=== PATIENT | female | born 1990 | race Caucasian/White ===

== ENCOUNTER → 2017-01-02 | Outpatient (CLI) | payer BC, OTHER ==
[~2017-01-02] MED LIST: BCPILLS PO; CIPR1TAB11 PO
== END | disposition home or self-care (01) ==
LOC: C.LABSPEC 18:03
PROVIDERS: ATTEND Internal Medicine
DX: N39.0 Urinary tract infection, site not specified (principal)

== ENCOUNTER → 2017-04-20 | Outpatient (CLI) | payer BC, OTHER ==
[2017-04-20 17:25] LABS: ALT/SGPT 23 U/L (12-78); AST/SGOT 42 U/L (15-37); BLOOD UREA NITROGEN 14 mg/dl (7-18); BUN/CREATININE RATIO 12.8 (10-20); CALCIUM 9.7 mg/dl (8.5-10.1); CARBON DIOXIDE 25 mmol/L (21-32); CHLORIDE 107 mmol/L (98-107); GLUCOSE 76 mg/dl (70-99); POTASSIUM 3.8 mmol/L (3.5-5.1); SODIUM 137 mmol/L (136-145)
[2017-04-20 17:35] LABS: ALB/GLOB RATIO 1.2 (0.9-2); ALKALINE PHOSPHATASE 38 U/L (45-117)
[2017-04-20 17:44] LABS: LYME DISEASE AB IGG NEG (NEG); LYME DISEASE AB IGM NEG (NEG)
[2017-04-20 17:58] LABS: BASO % 0.3 %; BASO ABS # 0.02 K/uL (0-0.2); COMPLETE YES; EOS % 0.4 %; HEMATOCRIT 44.2 % (37-47); IG% 0.1 %; LYMPH % 27.9 %; LYMPH ABS # 1.87 K/uL (1.2-3.4); MEAN CELL VOLUME 90.2 fL (80-100); MEAN CORPUSCULAR HEMOGLOBIN 30.8 pg (25-34); MEAN CORPUSCULAR HGB CONC 34.2 g/dl (32-36); MEAN PLATELET VOLUME 10.7 fL (7.4-10.4); MONO % 6.4 %; NEUT % 64.9 %; PLATELET COUNT 243 K/uL (130-400)
== END | disposition home or self-care (01) ==
LOC: C.LABBFT 16:35
PROVIDERS: ATTEND Internal Medicine
DX: Z00.00 Encounter for general adult medical examination without abnormal findings (principal); R06.09 Other forms of dyspnea; R07.9 Chest pain, unspecified; R53.83 Other fatigue

== ENCOUNTER → 2017-05-23 | Outpatient (CLI) | payer BC, OTHER ==
[2017-05-25 00:09] LABS: CHLAMYDIA TRACH RNA*** NOT DETECTED (NOT DETECTED); GC (NEIS GONORRHOEAE)RNA** NOT DETECTED (NOT DETECTED)
== END | disposition home or self-care (01) ==
LOC: C.LABSPEC 11:25
PROVIDERS: ATTEND Obstetrics & Gynecology
DX: Z01.419 Encounter for gynecological examination (general) (routine) without abnormal findings (principal)

== ENCOUNTER → 2017-05-23 | Outpatient (CLI) | payer BC, OTHER | END | disposition home or self-care (01) | LOC: C.PAPS 14:12 | PROVIDERS: ATTEND Obstetrics & Gynecology | DX: Z01.419 Encounter for gynecological examination (general) (routine) without abnormal findings (principal) ==

== ENCOUNTER → 2017-06-11 | Outpatient (CLI) | payer BC, OTHER ==
[2017-06-11 14:14] LABS: PREG INTERNAL NEGATIVE QC NEG CLEAR BACKGROUND; PREG INTERNAL POSITIVE QC POS CONTROL LINE
== END | disposition home or self-care (01) ==
LOC: C.LAB 13:36
PROVIDERS: ATTEND Obstetrics & Gynecology
DX: Z30.9 Encounter for contraceptive management, unspecified (principal)

== ENCOUNTER 2020-12-21 08:56 | Inpatient (IN) ==
[2020-12-21] MEDS ORDERED: OXYTOCIN 30 UNITS/500 ML BAG IV PRN ×2 (08:57)
--- NOTE | 2020-12-21 09:17 | Labor Progress Brief Note ---
Date of Service December 21, 2020 Subjective Patient seen in L&D3 where she is being admitted for planned IOL due to postdates. No OB c/o at this time. Good FM, no ctx, LOF or VB. Assessment & Plan (1) Encounter for induction of labor: Pitocin, AROM when ready, epidural on request. All questions answered of patient and FOB. Admission and Anticipated Discharge Date Admission Date: December 21, 2020 Physical Exam Physical Exam: /-2/soft/ant FHT Cat 1 [place] quiet Results & Data ([facility]) Vital Signs (Past 12 Hours) Vital Signs Pulse BP 12/21/20 08:59 84 129/79 Coding Level of Care Code None Diagnoses Encounter for induction of labor Z34.90
[2020-12-21 09:34] LABS: Hematocrit (blood only) 36.9 % (37-47); Hemoglobin 12.8 g/dL (12.0-16.0); Mean Corpuscular Hemoglobin 32.2 pg (25-34); Mean Corpuscular Hgb Conc 34.7 g/dL (32-36); Mean Corpuscular Volume 92.7 fL (80-100); Mean Platelet Volume 9.9 fL (7.4-10.4); Platelet Count 166 K/uL (130-400); RDW Coefficient of Variation 13.2 % (11.5-14.5); RDW Standard Deviation 45.2 fL (36.4-46.3); Red Blood Count 3.98 M/uL (4.2-5.4)
[2020-12-21] MEDS: LACTATED RINGER'S 1,000 ML IV PRN ×2 (10:40→12:21)
[2020-12-21] MEDS ORDERED: ePHEDrine sulfate 50 MG/ML AMP ONE (11:37)
--- NOTE | 2020-12-21 11:37 | Labor Progress Brief Note ---
Date of Service December 21, 2020 Subjective Feeling cramps, tolerating well Assessment & Plan (1) Encounter for induction of labor: Admission and Anticipated Discharge Date Admission Date: December 21, 2020 Physical Exam Physical Exam: / AROM light mec FHT Cat 1 [place] Q2 Results & Data ([facility]) Vital Signs (Past 12 Hours) Vital Signs Temp Pulse Resp BP 12/21/20 11:29 98.6 F 88 20 120/74 12/21/20 10:37 72 118/62 12/21/20 09:04 98.2 F 20 12/21/20 08:59 84 129/79 Coding Level of Care Code None Diagnoses Encounter for induction of labor Z34.90
[2020-12-21] MEDS ORDERED: BUPIVACAINE 0.25% 30 ML VIAL ONE (11:38)
[2020-12-21] MEDS ORDERED: fentaNYL 2MCG/ML ROPIVACAINE 1.25MG/ML 100 ML BAG EPI ONE (11:38)
[2020-12-21] MEDS ORDERED: fentaNYL citrate 100 MCG/2 ML VIAL ONE (11:38)
[2020-12-21] MEDS ORDERED: SODIUM CHLORIDE 0.9% INJ 10 ML VIAL ONE (11:38)
--- NOTE | 2020-12-21 11:59 | Anesthesiology Consultation ---
Date of Service December 21, 2020 Assessment & Plan Chart Review Chart Review: Acceptable Risk for Surgery, Patient NOT seen in Pre Admission Testing and Acceptable Risk for Labor Epidural Consults Requested none ASA ASA2 Proposed Anesthesia Anesthesia Type: Labor Epidural and CSE History Height/Weight Height: 5 ft 9 in Weight: 78.29 kg Allergies Allergy/AdvReac Type Severity Reaction Status Date / Time No Known Allergies Allergy Verified 12/21/20 09:31 Medications Home Medications Medication Instructions Recorded Confirmed Last Taken prenat.vits,paolo,rip-flrf-zbstx 1 tab PO DAILY 05/04/20 12/21/20 12/20/20 20:00 Active Medications Generic Name Dose Route Start Last Admin Trade Name Freq PRN Reason Stop Dose Admin Oxytocin 30 units in 500 mls @ 3 mls/hr 12/21/20 08:57 12/21/20 11:10 Pitocin IV 12/23/20 08:56 0.18 units/hr .Q24H PRN 3 mls/hr Labor Induction/Augmentation Titration Protocol 0.18 UNITS/HR Lactated Ringer's 1,000 mls @ 125 mls/hr 12/21/20 08:57 12/21/20 11:30 Lr IV 12/23/20 08:56 999 mls/hr .Q8H PRN Infusion L&D Protocol Protocol Past Medical History Medical History Classic migraine with aura First trimester Hx: UTI (urinary tract infection) Exercise / Class Metabolic Activity II 4-5 Yardwork/Stairs/Walk up hill Past Family History Family History Uncle Stroke paternal Myocardial infarction Grandfather (Paternal) Lung cancer Aunt Melanoma maternal Mother Melanoma Denies family history of Ovarian cancer Breast cancer Colorectal cancer Past Surgical History Surgical History History of knee surgery History of wisdom tooth extraction Past Anesthesia History No Hx of Anesthesia Complications and No Family Hx of Anesthesia Complications History of PONV No Hx of PONV and No Hx of Motion Sickness Social History Smoking Status: Never smoker Hx Alcohol Use: No Hx Substance Use: No Physical Exam Vital Signs Last Vital Signs Temp 37.0 C 12/21/20 11:29 Pulse 88 04/06/21 11:29 Resp 20 12/21/20 11:29 BP 120/74 12/21/20 11:29 Testing Laboratory Results 12/21/20 09:21
[2020-12-21] MEDS ORDERED: ePHEDrine sulfate 50 MG/ML AMP IV PRN (12:34)
[2020-12-21] MEDS ORDERED: PROMETHAZINE HCL 25 MG in SODIUM CHLORIDE 0.9% 50 ML IV PRN (12:34)
[2020-12-21] MEDS ORDERED: diphenhydrAMINE 50 MG/ML VIAL IV PRN (12:34)
[2020-12-21] MEDS ORDERED: fentaNYL 2MCG/ML ROPIVACAINE 1.25MG/ML 100 ML BAG EPI PRN (12:34)
[2020-12-21] MEDS ORDERED: NALOXONE HCL 1 MG in SODIUM CHLORIDE 0.9% 1000ML 1,000 ML IV PRN (12:34)
[2020-12-21] MEDS ORDERED: NALOXONE HCL 0.4 MG/1 ML VIAL/CARP IV PRN (12:34)
[2020-12-21] MEDS ORDERED: ONDANSETRON INJ 2 MG/ML 2 ML VIAL IV PRN (12:34)
--- NOTE | 2020-12-21 16:15 | Anesthesia Procedure Note ---
Date of Service December 21, 2020 Anesthesia Post Epidural Note Vital Signs Vital Signs: Temp Pulse Resp BP Pulse Ox 37.1 C 87 20 120/79 100 12/21/20 13:30 12/21/20 15:57 12/21/20 14:46 12/21/20 15:57 12/21/20 15:49 Notes Mental Status: alert / awake / arousable Nausea / Vomiting: adequately controlled Pain: adequately controlled Airway Patency, RR, SpO2: stable & adequate BP & HR: stable & adequate Hydration State: stable & adequate Neuraxial Anesthesia: was administered and sensory block is resolving Anesthetic Complications: no major complications apparent Epidural: Removed without complications and With tip intact
--- NOTE | 2020-12-21 16:21 | Delivery Summary ---
Vaginal Delivery Summary Date of Service December 21, 2020 Vaginal Delivery Summary DIAGNOSES: 1. [place] intrauterine at 40w3d gestation. 2. Induction of Labor. 3. Group B Streptococcus Neg. PROCEDURE: Spontaneous vaginal delivery and repair of second degree laceration. SURGEON: Marie Shaw MD. GLOBE MOUNTER: None. ESTIMATED BLOOD LOSS: 300 mL. COMPLICATIONS: None. PLACENTA: Spontaneous and intact with a 3-vessel cord. DISPOSITION: Stable to labor and delivery. DESCRIPTION: The patient pushed well and brought the head to in OA position. The 's head was allowed to deliver with contraction force and no further active pushing, with the perineum protected during this time. The shoulders delivered easily with a maternal pushing effort. There was no nuchal cord. The body delivered without any difficulty, and the was placed on the maternal abdomen. It was vigorous and moving all extremities, and making respiratory efforts. The cord was doubly clamped by the MD and then cut by the FOB. The placenta delivered spontaneously and was noted to be intact and with a 3VC. The cervix, vagina and perineum were examined and were found to have a second degree perineal laceration which was repaired in the usual manner using vicryl suture, including a crown stitch to rebuild the perineal body. The bladder was catheterized with a red rubber straight catheter x1 immediately thereafter. The fundus was firm and lochia minimal immediately after delivery. [facility] Vaginal Delivery Charge Vaginal Delivery Codes: 39770 global code for the antepartum, delivery, and post-
[2020-12-21] MEDS ORDERED: SUPERCREAM 0.870% 15 GM JAR EXT PRN (16:42)
[2020-12-21] MEDS ORDERED: BENZOCAINE 20% AER SPR 82.5 GM CAN EXT PRN (16:42)
[2020-12-21] MEDS ORDERED: DIPHTHERIA/TETANUS/PERTUSSIS 0.5 ML SYR/VIAL IM ONE (16:42)
[2020-12-21] MEDS ORDERED: HYDROCORTISONE ACETATE 25 MG SUPP PR PRN (16:42)
[2020-12-21] MEDS ORDERED: oxyCODONE/ACETAMINOPHEN 5mg/325mg TAB PO PRN (16:42)
[2020-12-21] MEDS ORDERED: ACETAMINOPHEN 325 MG TAB PO PRN (16:42)
[2020-12-21] MEDS: IBUPROFEN 600 MG TAB PO PRN (18:06)
[2020-12-21] MEDS: DOCUSATE SODIUM 100 MG CAP PO SCH (20:25)
[2020-12-22] MEDS: IBUPROFEN 600 MG TAB PO PRN ×3 (01:30→17:30)
--- NOTE | 2020-12-22 05:04 | Obstetrical Progress Note ---
Date of Service <Hany Doan MD - Last Filed: 12/22/20 06:21> December 22, 2020 Assessment & Plan <Hany Doan MD - Last Filed: 12/22/20 06:21> (1) (spontaneous vaginal delivery): Tammy is a 30 y/o female who is now PPD #1 following IOL (for post- dates) with subsequent at 40-3/7 weeks. - Feels well today. Eating well, voiding well, ambulating well. - Pain well controlled with ibuprofen 600mg Q4H PRN. - Rhogam today - Routine PPD care -- promote OOB, ambulation as tolerated - After discharge will have [address] Shaw Subjective <Hany Doan MD - Last Filed: 12/22/20 06:21> Tammy is a 30 y/o female who is now PPD #1 following IOL (for post-dates) with subsequent at 40-3/7 weeks. Reports feeling well overall this morning. Endorses mild abdominal cramping with pain well managed on analgesics. Voiding without difficulty. Tolerating meals well and able to ambulate some. Some persistent lochia with some improvement this morning. Breast feeding without difficulty. Review of Systems Denies fever, chills, sweats Denies shortness of breath, difficulty breathing, chest pain, palpitations, chest pressure. Denies breast pain. Denies dysuria. Denies headache or changes in vision. Physical Exam <Hany Doan MD - Last Filed: 12/22/20 06:21> General: Alert, oriented. No acute distress. Cardiac: Regular rate and rhythm, no murmurs/rubs/gallops. Respiratory: Clear to auscultation bilaterally a/p, no wheezes/rales/rhonchi. No increased work of breathing. Symmetrical chest rise. No respiratory distress. Abdomen: Soft, nontender, nondistended. Bowel sounds present. Uterus: Uterine fundus firm, palpable 1-2 cm below umbilicus. Lower Extremities: No lower extremity edema or swelling. No deep calf pain. Joseph's negative bilaterally. Results & Data ([facility]) <Hany Doan MD - Last Filed: 12/22/20 06:21> Vital Signs (Past 12 Hours) Vital Signs Temp Pulse Pulse Resp BP BP Pulse Ox 12/22/20 04:00 37.0 C 70 18 119/70 12/22/20 00:00 36.5 C 75 18 114/70 12/21/20 18:45 36.8 C 94 H 18 127/79 99 12/21/20 18:33 36.8 C 20 12/21/20 18:12 96 H 125/65 12/21/20 17:57 77 116/62 12/21/20 17:45 20 12/21/20 17:42 90 128/73 12/21/20 17:28 101 H 124/85 12/21/20 17:15 20 12/21/20 17:12 88 126/72 <Marie Shaw MD - Last Filed: 12/22/20 08:01> Co-Signing Physician Notes Resident Physician Supervision Note: I interviewed and examined the patient. Discussed with Dr. Doan and agree with findings and plan as documented in the note. Any exceptions or clarifications are listed here: [ ] Documented By: Marie Shaw MD, FACOG Resident Activity Tracking <Hany Doan MD - Last Filed: 12/22/20 06:21> Resident Involvement: Resident Care Provided Care Provided: Adult Hospital Medicine and OB Delivery
[2020-12-22 06:42] LABS: Hematocrit (blood only) 36.5 % (37-47); Hemoglobin 12.5 g/dL (12.0-16.0); Mean Corpuscular Hgb Conc 34.2 g/dL (32-36); Mean Corpuscular Volume 93.4 fL (80-100); Mean Platelet Volume 9.7 fL (7.4-10.4); Platelet Count 146 K/uL (130-400); RDW Coefficient of Variation 13.5 % (11.5-14.5); RDW Standard Deviation 45.8 fL (36.4-46.3); Red Blood Count 3.91 M/uL (4.2-5.4); White Blood Count 12.89 K/uL (4.8-10.8)
[2020-12-22] MEDS: DOCUSATE SODIUM 100 MG CAP PO SCH ×2 (08:45→20:42)
[2020-12-22] MEDS: PRENATAL VITAMIN 1 TAB PO SCH (08:45)
--- NOTE | 2020-12-23 06:15 | Obstetrical Progress Note ---
Date of Service <Hany Doan MD - Last Filed: 12/23/20 07:14> December 23, 2020 Assessment & Plan <Hany Doan MD - Last Filed: 12/23/20 07:14> (1) (spontaneous vaginal delivery): Tammy is a 30 y/o female who is now PPD #2 following IOL (for post- dates) with subsequent at 40-3/7 weeks. - Feels well today. Eating well, voiding well, ambulating well. - Pain well controlled with ibuprofen 600mg Q4H PRN. - Routine PPD care -- promote OOB, ambulation as tolerated - Anticipate d/c today - After discharge will have [address] Shaw Subjective <Hany Doan MD - Last Filed: 12/23/20 07:14> Tammy is a 30 y/o female who is now PPD #2 following IOL for post-dates with subsequent at 40 weeks. Reports feeling well overall this morning. Mild abdominal cramping but pain well managed on analgesics. Voiding without difficulty. Burning has gotten much better. Tolerating meals well and able to ambulate some. Endorses passing gas. Some persistent lochia with some improvement this morning. Breast feeding. Review of Systems Denies fever, chills, sweats Denies shortness of breath, difficulty breathing, chest pain, palpitations, chest pressure. Denies breast pain. Denies dysuria. Denies headache or changes in vision. Physical Exam <Hany Doan MD - Last Filed: 12/23/20 07:14> General: Alert, oriented. No acute distress. Cardiac: Regular rate and rhythm, no murmurs/rubs/gallops. Respiratory: Clear to auscultation bilaterally a/p, no wheezes/rales/rhonchi. No increased work of breathing. Symmetrical chest rise. No respiratory distress. Abdomen: Soft, nontender, nondistended. Bowel sounds present. Uterus: Uterine fundus firm, palpable 1-2 cm below umbilicus. Lower Extremities: No lower extremity edema or swelling. No deep calf pain. Joseph's negative bilaterally. Results & Data ([facility]) <Hany Doan MD - Last Filed: 12/23/20 07:14> Vital Signs (Past 12 Hours) Vital Signs Temp Pulse Resp BP Pulse Ox 12/22/20 23:05 36.8 C 85 18 137/83 99 <Huber Cohen MD - Last Filed: 12/23/20 08:28> Co-Signing Physician Notes Patient seen and evaluated and agree with the above findings and plan. Stable for discharge. Resident Activity Tracking <Hany Doan MD - Last Filed: 12/23/20 07:14> Resident Involvement: Resident Care Provided Care Provided: Adult Hospital Medicine and OB Delivery
[2020-12-23 06:56] LABS: Hematocrit (blood only) 34.7 % (37-47); Hemoglobin 11.9 g/dL (12.0-16.0)
[2020-12-23] MEDS: DOCUSATE SODIUM 100 MG CAP PO SCH (08:46)
[2020-12-23] MEDS: PRENATAL VITAMIN 1 TAB PO SCH (08:46)
== END 2020-12-23 10:47 | disposition home or self-care (01) | DRG 807 ==
LOC: 4S1 08:56 → 4S2 18:45

== ENCOUNTER 2023-08-24 06:10 | Inpatient (IN) ==
[2023-08-24] MEDS ORDERED: LIDOCAINE 1% LOCAL 20 ML VIAL INFIL PRN (07:02)
[2023-08-24] MEDS ORDERED: OXYTOCIN 30 UNITS/NSS 30 UNITS/500 ML BAG IV PRN ×2 (07:02→10:20)
--- NOTE | 2023-08-24 07:08 | History & Physical Report ---
Date of Service August 24, 2023 Assessment & Plan (1) 39 weeks gestation of : (2) Rh negative status during : (3) Normal labor: Plan admit, iv, labs. no evid of rom, wants epidural, plan arom once comfortable. rhogam eval pp. History of Present Illness Chief Complaint: regular ctx, ? leak Primary Care Provider: Madiha Borja MD 33yo at 39+ wks eulalio presents to L&D with regular ctx. She did note episode of strong ctx with a "pop " and gushed fluid in the toilet but then has not recurred. Pad she wore into hospital was dry. Painful ctx about q3min. No VB. +FM. PNC c/b 1. hypothyroidism 2. rh neg PNL rh neg, ri, ,gbs neg OBH: g1 GYNH: nl paps, no stds Allergies Allergy/AdvReac Type Severity Reaction Status Date / Time No Known Allergies Allergy Verified 08/23/23 09:06 Home Medications Medication Instructions Recorded Confirmed Type magnesium oxide 400 mg (241.3 mg 400 mg PO HS #30 tabs 11/23/22 08/23/23 Rx magnesium) tablet riboflavin (vitamin B2) 400 mg 400 mg PO DAILY #30 tabs 11/23/22 08/23/23 Rx tablet prenat.vits,paolo,nnk-gvpz-qtjsg 1 tab PO DAILY 01/10/23 08/23/23 History cholecalciferol (vitamin D3) 1,250 50,000 unit PO .qweekly #14 tabs 03/21/23 08/23/23 Rx mcg (50,000 unit) tablet levothyroxine 75 mcg tablet 75 mcg PO DAILY #90 tabs 06/21/23 08/23/23 Rx breast pump #1 ea 06/27/23 08/23/23 Rx breast pump #1 ea 06/27/23 08/23/23 Rx Patient History Medical History (Updated 08/24/23 @ 07:07 by Becky Grande MD, FACOG) Cramps of lower extremity History of chicken pox (spontaneous vaginal delivery) Classic migraine with aura Hx: UTI (urinary tract infection) Surgical History History of knee surgery History of wisdom tooth extraction Family History Uncle Stroke Myocardial infarction Grandfather (Paternal) Lung cancer Aunt Melanoma Mother Melanoma Aneurysm Denies family history of Ovarian cancer Breast cancer Colorectal cancer Social History (Updated 05/31/23 @ 15:38 by Cary Perry LPN) Smoking Status: Never smoker Do You Dip or Chew Tobacco: No; Hx Alcohol Use: No Hx Substance Use: No Preferred Language: Gambian Communication Ability: Effective Beliefs That Will Affect Care: None marital status: marital status details: Yovany Tariq (30) [phone] Current Living Situation: Spouse Current Living Situation Comment: , child and 2 dogs current occupational status: employed current occupation: custodial laborer at [employer] Feels Safe at Home: Yes Assistive Devices: None Review of Systems as per Subjective / HPI Physical Exam Constitutional: WD/WN, vitals as above Respiratory: normal respiratory effort, lungs clear to auscultation Cardiovascular: Rate/Rhythm: regular rate and regular rhythm Gastrointestinal (Abdomen): soft gravid nt Musculoskeletal: no edema nontender calves Neurologic: grossly normal Psychiatric: A+Ox3, euthymic affect Genitourinary: Manual OB Exam: + cervical dilation (palpable membrane) 6 cm, + cervical effacement 90% and + station 0 OB Exam Monitor Tracing: + external FHT monitor used, + external uterine monitor used (q3), + category I and + normal FHT variability SSE no pooling, neg nitrazine, neg ferning. Results & Data Vital Signs (Past 12 Hours) Vital Signs Pulse BP 08/24/23 06:32 80 119/72 Coding Level of Care Code None Diagnoses 39 weeks gestation of Z3A.39 Rh negative status during O26.899; Z67.91 Normal labor O80; Z37.9
[2023-08-24] MEDS ORDERED: ROPIVACAINE 0.5% PF 5 MG/ML 20 ML VIAL EPI PRN (07:16)
[2023-08-24] MEDS ORDERED: NALOXONE HCL 0.4 MG/1 ML VIAL/CARP IV PRN (07:16)
[2023-08-24] MEDS ORDERED: BUPIVACAINE 0.25% PF 30 ML VIAL EPI STA (07:16)
[2023-08-24] MEDS ORDERED: fentaNYL citrate PF 100 MCG/2 ML VIAL EPI STA (07:16)
[2023-08-24] MEDS ORDERED: LIDOCAINE 2%/EPINEPHRINE 1:200,000 20 ML PF EPI STA (07:16)
[2023-08-24] MEDS ORDERED: fentANYL 2 MCG/ML BUPIVacaine 0.125%-NSS 100ML BAG EPI PRN (07:16)
[2023-08-24] MEDS ORDERED: diphenhydrAMINE 50 MG/ML VIAL IV PRN (07:16)
[2023-08-24] MEDS ORDERED: BUPIVACAINE 0.25% PF 30 ML VIAL EPI PRN (07:16)
[2023-08-24] MEDS ORDERED: NALBUPHINE HCL 5 MG in SYRINGE 0 ML IV PRN (07:16)
[2023-08-24] MEDS ORDERED: SODIUM CHLORIDE 0.9% PF INJ 10 ML VIAL EPI PRN (07:16)
[2023-08-24] MEDS ORDERED: fentaNYL citrate PF 100 MCG/2 ML VIAL EPI PRN (07:16)
[2023-08-24] MEDS ORDERED: SODIUM CHLORIDE 0.9% PF INJ 10 ML VIAL EPI STA (07:16)
[2023-08-24] MEDS ORDERED: LIDOCAINE 2% MPF LOCAL 5 ML VIAL EPI PRN (07:16)
[2023-08-24] MEDS ORDERED: NALOXONE HCL 1 MG in SODIUM CHLORIDE 0.9% 1,000 ML IV PRN (07:16)
[2023-08-24] MEDS ORDERED: ePHEDrine sulfate 50 MG/ML AMP IV PRN (07:16)
--- NOTE | 2023-08-24 07:16 | Anesthesiology Consultation ---
Date of Service August 24, 2023 Assessment & Plan (1) Encounter for pre-operative examination: Chart Review Chart Review: Patient NOT seen in Pre Admission Testing and Acceptable Risk for Labor Epidural Consults Requested none History Height/Weight Height: 5 ft 9 in Weight: 76.657 kg Allergies Allergy/AdvReac Type Severity Reaction Status Date / Time No Known Allergies Allergy Verified 08/23/23 09:06 Medications Home Medications Medication Instructions Recorded Confirmed Last Taken magnesium oxide 400 mg (241.3 mg 400 mg PO HS #30 tabs 11/23/22 08/23/23 Unknown magnesium) tablet riboflavin (vitamin B2) 400 mg 400 mg PO DAILY #30 tabs 11/23/22 08/23/23 Unknown tablet prenat.vits,paolo,jjt-iasi-meedd 1 tab PO DAILY 01/10/23 08/23/23 Unknown cholecalciferol (vitamin D3) 1,250 50,000 unit PO .qweekly #14 tabs 03/21/23 08/23/23 Unknown mcg (50,000 unit) tablet levothyroxine 75 mcg tablet 75 mcg PO DAILY #90 tabs 06/21/23 08/23/23 Unknown breast pump #1 ea 06/27/23 08/23/23 Unknown breast pump #1 ea 06/27/23 08/23/23 Unknown Past Medical History Medical History Cramps of lower extremity History of chicken pox (spontaneous vaginal delivery) Classic migraine with aura Hx: UTI (urinary tract infection) Past Family History Family History Uncle Stroke paternal Myocardial infarction Grandfather (Paternal) Lung cancer Aunt Melanoma maternal Mother Melanoma Aneurysm behind eye Denies family history of Ovarian cancer Breast cancer Colorectal cancer Past Surgical History Surgical History History of knee surgery History of wisdom tooth extraction Social History Smoking Status: Never smoker Do You Dip or Chew Tobacco: No Hx Alcohol Use: No Hx Substance Use: No Physical Exam Vital Signs Last Vital Signs Temp 97.9 F 08/24/23 06:32 Pulse 80 08/24/23 06:32 BP 119/72 08/24/23 06:32
[2023-08-24] MEDS: LACTATED RINGER'S 1,000 ML IV PRN ×2 (07:22→08:15)
[2023-08-24] MEDS ORDERED: LIDOCAINE 2%/EPINEPHRINE 1:200,000 20 ML PF ONE (07:31)
[2023-08-24] MEDS ORDERED: fentaNYL citrate PF 100 MCG/2 ML VIAL ONE (07:31)
[2023-08-24] MEDS ORDERED: fentANYL 2 MCG/ML BUPIVacaine 0.125%-NSS 100ML BAG ONE (07:31)
[2023-08-24] MEDS ORDERED: ePHEDrine sulfate 50 MG/ML AMP ONE (07:31)
[2023-08-24] MEDS ORDERED: BUPIVACAINE 0.25% PF 30 ML VIAL ONE (07:31)
[2023-08-24] MEDS ORDERED: SODIUM CHLORIDE 0.9% PF INJ 10 ML VIAL ONE (07:31)
[2023-08-24 07:43] LABS: Hematocrit (blood only) 37.1 % (37.0-47.0); Mean Corpuscular Hemoglobin 31.6 pg (25.0-34.0); Mean Platelet Volume 9.7 fL (9.4-12.4); Platelet Count 161 K/uL (130-400); RDW Coefficient of Variation 13.3 % (11.5-14.5); RDW Standard Deviation 43.6 fL (36.4-46.3); Red Blood Count 4.12 M/uL (4.20-5.40); White Blood Count 11.15 K/ul (4.8-10.8)
--- NOTE | 2023-08-24 10:19 | Delivery Summary ---
Vaginal Delivery Summary Date of Service August 24, 2023 Vaginal Delivery Summary and 2nd Degree LAC PREOPERATIVE DIAGNOSIS: 1. Single intrauterine at 39 2/7 wga 2. Labor 3. Hypothyroid 4. Rh neg POSTOPERATIVE DIAGNOSIS: 1. Single intrauterine at 39 2/7 wga 2. Labor 3. Hypothyroid 4. Rh neg 5. Delivered PROCEDURE: 1. Normal spontaneous vaginal delivery. SURGEON: Yolis Cuevas MD ANESTHESIA: Epidural. ESTIMATED BLOOD LOSS: 300 mL FLUIDS: Continuous LR. URINE OUTPUT: Not measured. COMPLICATIONS: None. CONDITION: Stable. INDICATIONS: 33 yo at 39 2/7 presented with contractions increasing in frequency and intensity. She noted some leaking as well. ROM was ruled out but she was 6cm on arrival and admitted. She received an epidural for pain control and underwent srom and progressed to complete and desired to push. FINDINGS: A viable male , weight pending with Apgars of 8 and 9 at 1 and 5 minutes respectively. SPECIMEN: Cord blood OPERATIVE REPORT: The patient progressed to 10 cm, 100% effaced and +2 station, pushed over intact perineum with anesthesia to deliver a viable male infant, weight and Apgars as above. Head of delivered in PRUDENCIO position. No nuchal cord was present. Body and shoulders were delivered without difficulty. was delivered to maternal abdomen and nursing staff. Delayed cord clamping was performed for 60 seconds. Cord was clamped and cut. Cord blood was obtained. Placenta delivered spontaneously intact. IV oxytocin and fundal massage were given for excellent hemostasis. Vagina, cervix, perineum, and placenta were inspected. A small second degree was noted and repaired in the usual fashion. There was excellent hemostasis. Sponge and needle counts correct x2. No sponges were left behind. Mother and stable in immediate period. [facility] Vaginal Delivery Charge Vaginal Delivery Codes: 34837 global code for the antepartum, delivery, and post- Delivery Type Details: and 2nd Degree LAC
[2023-08-24] MEDS ORDERED: bisacodyL 10 MG SUPP PR PRN (10:20)
[2023-08-24] MEDS ORDERED: HYDROCORTISONE ACETATE 25 MG SUPP PR PRN (10:20)
[2023-08-24] MEDS ORDERED: ACETAMINOPHEN 325 MG TAB PO PRN (10:20)
[2023-08-24] MEDS ORDERED: BENZOCAINE 20% SPRY 85 APPLN/85 GM CAN EXT PRN (10:20)
[2023-08-24] MEDS ORDERED: oxyCODONE/ACETAMINOPHEN 5mg/325mg TAB PO PRN (10:20)
[2023-08-24] MEDS ORDERED: DIPHTHERIA/TETANUS/PERTUSSIS Vaccine (Tdap, Age 7+yrs) 0.5mL SYR/VL IM ONE (10:20)
--- NOTE | 2023-08-24 10:29 | Anesthesia Procedure Note ---
Date of Service August 24, 2023 Anesthesia Post Epidural Note Vital Signs Vital Signs: Temp Pulse Resp BP Pulse Ox 98.2 F 76 20 113/62 100 08/24/23 07:24 08/24/23 10:20 08/24/23 10:20 08/24/23 10:20 08/24/23 09:54 Pain Intensity Bilateral Abdomen: Pain Intensity: 0 Notes Mental Status: alert / awake / arousable and participated in evaluation Nausea / Vomiting: adequately controlled Pain: adequately controlled Airway Patency, RR, SpO2: stable & adequate BP & HR: stable & adequate Hydration State: stable & adequate Neuraxial Anesthesia: was administered and sensory block is resolving Anesthetic Complications: no major complications apparent and Pt Satisfied with anesthetic care Epidural: Removed without complications and With tip intact
[2023-08-24] MEDS: DOCUSATE SODIUM 100 MG CAP PO SCH (20:16)
[2023-08-24] MEDS: IBUPROFEN 600 MG TAB PO PRN (20:16)
--- NOTE | 2023-08-25 04:57 | Obstetrical Progress Note ---
Date of Service <Max Marks DO - Last Filed: 08/25/23 06:10> August 25, 2023 Assessment & Plan <Max Marks DO - Last Filed: 08/25/23 06:10> (1) care following vaginal delivery: Plan 33 year old , PPD#1: Eating well, voiding well, ambulating well Vitals reviewed, WNL Pain well controlled with Motrin Routine care - OOB, ambulation, diet progression as tolerated Will have 6 week follow up with Dr. Cuevas <Yolis Cuevas MD - Last Filed: 08/25/23 08:06> (1) care following vaginal delivery: Subjective <Max Marks DO - Last Filed: 08/25/23 06:10> Ambulation: ambulating normally Voiding: no voiding problems Passing Gas:: Yes Diet Tolerance:: regular diet Lochia:: Small Feeding Type:: breast feeding Pain well controlled with Motrin Review of Systems -Denies fever or chills -Denies dyspnea, chest pain, or palpitations -Denies dysuria -Denies headache or changes in vision Physical Exam <Max Marks DO - Last Filed: 08/25/23 06:10> General: Alert and oriented. No acute distress Cardiac: Regular rate and rhythm, no murmurs appreciated Respiratory: Lungs clear to auscultation bilaterally, No increased work of breathing Abdominal: Soft, non-tender, non-distended. Bowel sounds present. Uterus: Uterine fundus firm, palpable below umbilicus Extremities: No lower extremity edema, calves non-tender bilaterally Results & Data <Max Marks DO - Last Filed: 08/25/23 06:10> Vital Signs (Past 12 Hours) Vital Signs Temp Pulse Resp BP O2 Del Method 08/25/23 03:58 36.6 C 75 16 107/70 Room Air 08/25/23 00:11 36.7 C 69 16 107/70 Room Air 08/24/23 19:45 36.5 C 76 16 131/84 Room Air Supervising Physician <Yolis Cuevas MD - Last Filed: 08/25/23 08:06> Co-Signing Physician Notes Resident Physician Supervision Note: I interviewed and examined the patient. Discussed with Dr. Marks and agree with findings and plan as documented in the note. Any exceptions or clarifications are listed here: PP1 s/p , doing well. VSS, exam benign and wnl. Desires dc, ok after 24 hrs Documented By: Yolis Cuevas MD Resident Activity Tracking <Max Marks DO - Last Filed: 08/25/23 06:10> Resident Involvement: Resident Care Provided Care Provided: OB Delivery
[2023-08-25] MEDS ORDERED: LEVOTHYROXINE SODIUM 75 MCG TABLET PO SCH (06:30)
[2023-08-25 06:57] LABS: Hematocrit (blood only) 34.1 % (37.0-47.0); Hemoglobin 11.6 g/dl (12.0-16.0); Mean Corpuscular Hemoglobin 31.5 pg (25.0-34.0); Mean Corpuscular Volume 92.7 fL (80.0-100.0); Mean Platelet Volume 9.6 fL (9.4-12.4); Platelet Count 140 K/uL (130-400); RDW Coefficient of Variation 13.5 % (11.5-14.5); RDW Standard Deviation 45.7 fL (36.4-46.3); Red Blood Count 3.68 M/uL (4.20-5.40); White Blood Count 11.33 K/ul (4.8-10.8)
[2023-08-25] MEDS: DOCUSATE SODIUM 100 MG CAP PO SCH (07:59)
[2023-08-25] MEDS: IBUPROFEN 600 MG TAB PO PRN (07:59)
[2023-08-25] MEDS ORDERED: PRENATAL VITAMIN 1 TAB PO SCH (08:00)
[2023-08-25] MEDS ORDERED: bisacodyL 5 MG TABEC PO SCH (20:00)
== END 2023-08-25 15:00 | disposition home or self-care (01) | DRG 807 ==
LOC: OPB 06:10 → 4S1 06:12 → 4E2 15:15